=== PATIENT | female | born 1945 | race Caucasian/White ===

== ENCOUNTER 2018-11-07 13:31 | Outpatient (CLI) | payer MEDICARE ==
--- NOTE | 2018-11-07 14:14 | CT ---
FExam: Head CT without contrast HISTORY: Fall. Pain. COMPARISON: none FINDINGS: Hemorrhage: No intraparenchymal hemorrhage or extra-axial hematoma. Brain parenchyma: Cortical duenas-white matter differentiation is preserved. No mass effect or midline shift. Basilar cisterns are patent age-appropriate atrophy. There are chronic small vessel ischemic c hanges of the white matter. Ventricular system: Ventricles and sulci are patent and symmetric. Calvarium: No fracture. Sinuses and mastoid air cells: Minimal mucosal disease of the right maxillary sinus. Adequate mastoid air cell aeration. IMPRESSION: No acute intracranial process. No intracranial post traumatic sequelae.
== END 2018-11-07 13:32 | disposition home or self-care (01) ==
LOC: NAV CT 13:31
PROVIDERS: ATTEND Internal Medicine
DX: R29.6 Repeated falls (principal)
CPT/HCPCS: 70450